=== PATIENT | female | born 1975 | race Hispanic/Latino ===

== ENCOUNTER 2024-04-20 10:01 | Inpatient (IN) | payer OTHER ==
[~2024-04-20] VITALS: Ht 152.4 cm; Wt 72.3 kg
--- NOTE | 2024-04-20 10:08 | ERN ---
ED Note History of Present Illness Stated Complaint: ABDOMINAL PAIN, HX OF HERNIA Chief Complaint: Abdominal Pain Time Seen by MD: 10:02 Dictation: PATIENT IS A 48-YEAR-OLD FEMALE COMING IN TODAY WITH MID ABDOMINAL PAIN WITH NAUSEA ONSET THIS MORNING. NO VOMITING NO DIARRHEA NO CHEST PAIN NO BACK PAIN. STATES SHE HAS A HISTORY OF A HERNIA THAT WAS DIAGNOSED IN 2018 HOWEVER SHE NEVER DID ANYTHING ABOUT IT. NO FEVER AT THIS TIME Allergies: Coded Allergies: No Known Drug Allergies (Unverified Allergy, Intermediate, 04/20/24) Past Medical History Past Medical History: Diabetes-Type II Surgical History: Other Surgical History Other: BRAIN ANEURYSM CLIP History: Not Applicable RN Note Reviewed/Agreed w/PFSH: Yes Review of System Dictation CONSTITUTIONAL: NEGATIVE EXCEPT FOR HPI HEAD/FACE: NEGATIVE EXCEPT FOR HPI EENT: NEGATIVE EXCEPT FOR HPI RESPIRATORY: NEGATIVE EXCEPT FOR HPI GASTROINTESTINAL/ABDOMINAL: NEGATIVE EXCEPT FOR HPI MID ABDOMINAL PAIN/NAUSEA GENITOURINARY: NEGATIVE EXCEPT FOR HPI MUSCULOSKELETAL: NEGATIVE EXCEPT FOR HPI INTEGUMENTARY: NEGATIVE EXCEPT FOR HPI NEUROLOGICAL/PSYCH: NEGATIVE EXCEPT FOR HPI HEMATOLOGIC/LYMPHATIC: NEGATIVE EXCEPT FOR HPI ALL SYSTEMS NEGATIVE, EXCEPT NOTED ABOVE. 13 POINT REVIEW OF SYSTEMS ASSESSED AND ALL NEGATIVE EXCEPT FOR ABOVE. Initial Vital Sign VS Vital Signs Date Time Temp Pulse Resp B/P (MAP) Pulse Ox O2 Delivery O2 Flow Rate FiO2 04/20/24 10:02 98.8 80 20 138/78 99 Room Air 0 04/20/24 14:12 21 Physical Exam Dictation VITAL SIGNS REVIEWED GENERAL APPEARANCE: ALERT, ORIENTED X 3, MODERATE ACUTE DISTRESS, WELL DEVELOPED, NOURISHED. HEAD AND FACE: NON-TRAUMATIC. EYES: PERRL, PINK CONJUNCTIVAS, EYELID NO TRAUMA, ANTERIOR CHAMBER WITH ARCUS SENILIS. EARS: PINNAS INTACT AND NO SIGNS OF TRAUMA OR ERYTHEMA EAR CANALS CLEAR AND NO DISCHARGE TM NO ERYTHEMA NOSE: NO DISCHARGE, NO BLEEDING. OROPHARYNX: MOUTH NORMAL, TONGUE PINK, PHARYNX CLEAR,NO ERYTHEMA, TONSILS NO EXUDATES, NO ABSCESSES NOTED, MUCOUS MEMBRANE MOIST NECK: SUPPLE, NON-TENDER, NO THYROMEGALY, NO MASSES, NO JVD, NO BRUITS BREAST:DEFERRED CHEST:NO TENDERNESS, NO CREPITUS, NO PARADOXICAL MOVEMENT, NO RETRACTIONS LUNGS:CLEAR, WELL-VENTILATED, SYMMETRIC, NO RALES, NO WHEEZING, NO RHONCHI, NO STRIDOR, GOOD BREATH SOUNDS BILATERALLY HEART: REGULAR RATE, REGULAR RHYTHM, NO MURMUR, NO GALLOPS VASCULAR: NO PERIPHERAL EDEMA, ABDOMEN: SOFT, POSITIVE BOWEL SOUNDS, NONDISTENDED, NO GUARDING, FOCAL ABDOMINAL PAIN SUPRAPUBIC UMBILICAL AREA., NO REBOUND, NO MASSES NO HEPATOMEGALY, NO SPLENOMEGALY, NO COURTNEY'S SIGN, NO HERNIAS. NO REDUCIBLE MASS RECTAL: DEFERRED GENITAL: DEFERRED NEUROLOGICAL: NORMAL SPEECH, MOTOR FUNCTION INTACT, SENSORY FUNCTION INTACT MUSCULOSKELETAL: NECK NONTENDER, FULL RANGE OF MOTION, BACK NONTENDER, FULL RANGE OF MOTION, EXTREMITIES: NONTENDER, FULL RANGE OF MOTION SKIN: COLOR PINK, DRY, NO TURGOR, NO RASH, NO LACERATIONS, NO ABRASIONS, NO CONTUSIONS. LYMPHATIC: DEFERRED Results (Laboratory/Radiology) Laboratory/Radiology Laboratory Tests Test 04/20/24 10:28 04/20/24 10:31 04/20/24 13:57 White Blood Count 9.5 K/uL (4.8-10.8) Red Blood Count 4.78 MIL/uL (4.00-5.50) Hemoglobin 14.2 g/dL (12.0-16.0) Hematocrit 43.1 % (36-48) Mean Corpuscular Volume 90.2 fL (79-99) Mean Corpuscular Hemoglobin 29.7 pg (27.0-33.0) Mean Corpuscular Hemoglobin Concent 32.9 g/dL (32.0-36.0) Red Cell Distribution Width 12.6 % (11.0-15.5) Platelet Count 310 K/uL (130-400) Mean Platelet Volume 10.2 fL (7.5-10.5) Immature Granulocyte % (Auto) 0.4 % (0-1) Neutrophils (%) (Auto) 85.7 % (40.0-77.0) H Lymphocytes (%) (Auto) 8.0 % (21.0-51.0) L Monocytes (%) (Auto) 5.0 % (3.0-13.0) Eosinophils (%) (Auto) 0.6 % (0.0-8.0) Basophils (%) (Auto) 0.3 % (0.0-5.0) Neutrophils # (Auto) 8.2 K/uL (1.8-7.7) H Lymphocytes # (Auto) 0.8 K/uL (1.0-4.8) L Monocytes # (Auto) 0.5 K/uL (0.1-1.0) Eosinophils # (Auto) 0.06 K/uL (0.00-0.70) Basophils # (Auto) 0.03 K/uL (0.00-0.20) Absolute Immature Granulocyte (auto 0.04 K/uL (0-1) Nucleated Red Blood Cells 0.0 % (0.0-0.19) White Cell Morphology Comment See comments Sodium Level 139 mmol/L (136-145) Potassium Level 4.0 mmol/L (3.5-5.1) Chloride Level 103 mmol/L (101-111) Carbon Dioxide Level 27 mmol/L (21-32) Blood Urea Nitrogen 15 mg/dL (7-18) Creatinine 0.7 mg/dL (0.5-1.0) Glomerular Filtration Rate Calc 105 mL/min (>90) Random Glucose 107 mg/dL (70-105) H Hemoglobin A1c 5.9 % (4.0-6.0) Estimated Average Glucose (eAG) 123 mg/dL (70-126) Total Calcium 9.5 mg/dL (8.5-10.1) Troponin I High Sensitivity < 4 ng/L (4-50) L Lipase 37 U/L (16-77) Urine Color YELLOW (YELLOW) Urine Appearance TURBID (CLEAR) Urine pH 8.0 (5.0-8.0) Urine Specific [place] 1.019 (1.001-1.031) Urine Protein 10 mg/dL (NEGATIVE) H Urine Glucose (UA) NEGATIVE mg/dL (NEGATIVE) Urine Ketones NEGATIVE mg/dL (NEGATIVE) Urine Occult Blood NEGATIVE (NEGATIVE) Urine Nitrate NEGATIVE (NEGATIVE) Urine Bilirubin NEGATIVE mg/dL (NEGATIVE) Urine Urobilinogen 0.2 mg/dL (0.2-1.0) Urine Leukocyte Esterase NEGATIVE Talisha/uL Urine RBC 0-1 /HPF (0-1) Urine WBC 2-5 /HPF (0-1) H Urine Squamous Epithelial Cells 2-5 /HPF (0-2) Urine Amorphous Sediment Moderate /LPF (None Seen) H Urine Bacteria Moderate /HPF (None Seen) H Prothrombin Time 10.5 SEC (9.6-11.6) Prothromb Time International Ratio 0.97 (0.85-1.15) Activated Partial Thromboplast Time 32.9 SEC (26.3-35.5) Lactic Acid Level 2.0 mmol/L (0.8-2.5) Magnesium Level 1.90 mg/dL (1.80-2.40) Total Bilirubin 0.5 mg/dL (0.2-1.0) Direct Bilirubin 0.1 mg/dL (0.0-0.3) Aspartate Amino Transf (AST/SGOT) 23 U/L (10-37) Alanine Aminotransferase (ALT/SGPT) 38 U/L (12-78) Alkaline Phosphatase 100 U/L (50-136) Total Protein 7.6 g/dL (6.0-8.3) Albumin 4.1 g/dL (3.5-5.0) Thyroid Stimulating Hormone (TSH) 0.57 uIU/mL (0.36-3.74) REASON: MID ABDOMINAL PAIN NAUSEA ONSET THIS MORNING. HISTORY OF A HERNIA ORDERING PHYSICIAN: GUCCI BENITEZ NP PROCEDURE: ABD PEL W - CT ABDOMEN/PELVIS W/CONTRAST CT ABDOMEN/PELVIS W/CONTRAST REASON: MID ABDOMINAL PAIN NAUSEA ONSET THIS MORNING. HISTORY OF A HERNIA COMPARISON: None. TECHNIQUE: Images are obtained from lung bases to the symphysis pubis following IV contrast, 75 cc Omnipaque 350. FINDINGS: Lung bases are clear. There are no focal liver lesions. There are normal-appearing kidneys.. Spleen and pancreas appear unremarkable. The gallbladder appears normal as well. There is a ventral hernia in the anterior abdominal midline. This contains a loop of small bowel. The loops of small bowel proximal to this are fluid-filled and mildly distended consistent with early mechanical obstruction, distal small bowel loops are normal caliber. There is no wall thickening to suggest strangulation at this time. Remaining bowel loops appear unremarkable. This includes normal appearance of the colon. The appendix was not separately identified, there is no secondary CT evidence of acute appendicitis. There is no evidence of free fluid or intraperitoneal air. There are no focal fluid collections. Aorta and retroperitoneum appear normal as do pelvic soft tissue structures. The anterior abdominal wall is intact. Osseous structures appear unremarkable. IMPRESSION: 1. Midline ventral hernia 5 cm above the umbilicus, this contains a loop of small bowel. 2. Proximal loops are mildly dilated and fluid-filled, distal loops normal caliber, consistent with early or partial mechanical obstruction, there is no current evidence of strangulation. 3. Otherwise unremarkable postcontrast CT abdomen and pelvis. CT was performed with one or more following dose reduction techniques: automated exposure control, adjustment of the mA and kv according to patient's size, or use of a iterative reconstruction technique. Labs Reviewed?: Yes EKG Comment: EKG NORMAL SINUS RHYTHM/HEART RATE 71/EARLY REPOLARIZATION IN LEADS V4 FIVE AND SIX. ED Course ED Course Orders Procedure Category Date Status Time Cbc With Differential LAB 04/20/24 Complete 10:06 Troponin I High LAB 04/20/24 Complete Sensitivity 10:06 Urinalysis Profile LAB 04/20/24 Complete 10:06 Ct Abdomen/Pelvis CT 04/20/24 Resulted W/Contrast 10:06 12 Lead Ekg Tracing- EKG 04/20/24 Resulted Technical 10:06 0.9%Nacl 1000ml (Ns PHA 04/20/24 Complete 1000ml) 10:30 Morphine 2mg Syg PHA 04/20/24 Complete (Morphine 2mg Syg) 10:30 Ondansetron 4mg Inj PHA 04/20/24 Complete (Zofran 4mg Inj) 10:30 Lipase LAB 04/20/24 Complete 10:06 Basic Metabolic Panel LAB 04/20/24 Complete 10:06 Culture Urine SUKH 04/20/24 In Process 11:16 Iohexol (Omnipaque) PHA 04/20/24 Complete 11:46 Ngt To Low CPOE 04/20/24 Transmitted Intermittent Suctn 12:51 Morphine 2mg Syg PHA 04/20/24 Complete (Morphine 2mg Syg) 13:00 Edm Admit Bridge Order ADM 04/20/24 Transmitted 13:01 General Surgery CONPHYSVC 04/20/24 Transmitted Consult 13:10 Admit Orders ADM 04/20/24 Transmitted 13:11 Pantoprazole 40mg Inj PHA 04/20/24 In Process (Protonix 40mg Inj 13:30 Acetaminophen PHA 04/20/24 Complete (Acetaminophen) 13:30 Ketorolac PHA 04/20/24 In Process Tromethamine 15mg/Ml 13:30 Morphine 2mg Syg PHA 04/20/24 In Process (Morphine 2mg Syg) 13:30 0.9%Nacl 1000ml (Ns PHA 04/20/24 In Process 1000ml) 13:30 Hemoglobin A1c LAB 04/20/24 Complete 13:17 Ribs Unilat 2v Lt RAD 04/20/24 Resulted 13:17 Chest 1vw RAD 04/20/24 Resulted 13:17 Aspiration Precautions CPOE 04/20/24 Transmitted 13:18 Elevate Hob At 30 CPOE 04/20/24 Transmitted Degrees 13:18 Ceftriaxone 1g Vial PHA 04/20/24 In Process (Rocephine 1g Inj) 13:30 Pt And Ptt LAB 04/20/24 Complete 13:18 Hepatic Function Panel LAB 04/20/24 Complete 13:19 Type And Screen BBK 04/20/24 Complete 13:19 Lactic Acid LAB 04/20/24 Complete 13:19 Magnesium LAB 04/20/24 Complete 13:19 Thyroid Stimulating LAB 04/20/24 Complete Hormone 13:19 Lidocaine (Lidoderm PHA 04/20/24 In Process Patch 5%) 17:00 Acetaminophen PHA 04/20/24 In Process (Acetaminophen) 17:00 Strict I&O CPOE 04/20/24 Transmitted 16:57 Daily Weights CPOE 04/20/24 Transmitted 16:57 *Nursing CPOE 04/20/24 Transmitted Communication: 16:57 Ondansetron 4mg Inj PHA 04/20/24 In Process (Zofran 4mg Inj) 17:30 Enoxaparin Sodium 40 PHA 04/20/24 In Process Mg/0.4 Ml (Lovenox) 21:00 Current Medications Medications (Trade) Dose Ordered Sig/Natalie Route PRN Reason Start Time Stop Time Status Last Admin Dose Admin Iohexol (Omnipaque) 75 ml STK-MED ONCE IV 04/20/24 11:46 04/20/24 11:47 DC Morphine Sulfate (morPHINE 2MG SYG) 2 mg ONCE ONCE IVP 04/20/24 10:30 04/20/24 10:31 DC 04/20/24 11:51 Morphine Sulfate (morPHINE 2MG SYG) 2 mg ONCE ONCE IVP 04/20/24 13:00 04/20/24 13:01 DC 04/20/24 13:16 Ondansetron HCl (zoFRAN 4MG INJ) 4 mg ONCE ONCE IVP 04/20/24 10:30 04/20/24 10:31 DC 04/20/24 11:31 Sodium Chloride 1,000 ml @ 0 mls/hr ONCE ONCE IV 04/20/24 10:30 04/20/24 10:31 DC 04/20/24 11:31 Vital Signs Date Time Temp Pulse Resp B/P (MAP) Pulse Ox O2 Delivery O2 Flow Rate FiO2 04/20/24 18:23 98.8 77 16 121/62 99 Room Air* 0 21 04/20/24 14:12 70 16 126/64 97 Room Air* 0 21 04/20/24 10:02 98.8 80 20 138/78 99 Room Air 0 TWELVE 48, SPOKE WITH , REVIEWED CT AND LABS WITH HIM AND HE AGREED TO ADMIT PATIENT HE IS AWARE I AM PAGING DR. MILLER FOR CONSULTATION. HEART Score Response (Comments) Value EKG: Repolarization changes 1 Age: 45-65yrs (+1) 1 Risk Factors: 1-2 risk factors (+1) 1 Initial Troponin: Normal limit (0) 0 Total 3 Medical Decision Making MDM MDM: DIFFERENTIAL DIAGNOSIS: APPENDICITIS/DIVERTICULITIS/INCARCERATED HERNIA/PANCREATITIS/UTI/ELECTROLYTE IMBALANCE/DEHYDRATION/BOWEL OBSTRUCTION RATIONALE: TESTS CONSIDERED AND ORDERED SECONDARY TO SHARED DECISION MAKING INCLUDE: LABS, ECG AND RADIOLOGY PREVIOUS OUTSIDE RECORDS REVIEWED: OLD ER VISITS. REVIEWED RISK OF COMPLICATION AND/OR MORBIDITY OR MORTALITY OF PATIENT MANAGEMENT: MILD MEDICATIONS-PER MEDICATION RECONCILIATION SEE NURSE'S NOTES NEED FOR HOSPITALIZATION: PATIENT DOES MEET CRITERIA FOR HOSPITALIZATION. YES, PATIENT WILL NEED SURGICAL CONSULTATION NG TUBE NEED FOR EMERGENCY MAJOR/MINOR SURGERY: NO THERE ARE NO SOCIAL CONCERNS WITH THIS PATIENT. PRESCRIPTION DRUG MANAGEMENT. PRESCRIPTIONS WILL INCLUDE SYMPTOMATIC CARE PATIENT'S PRIOR EXTERNAL MEDICAL RECORDS FROM OTHER ER VISITS WERE REVIEWED BY ME INDICATED. PRIOR TESTING AND RESULTS FROM PREVIOUS VISITS WERE REVIEWED. PRIOR TESTS WERE TAKEN INTO ACCOUNT WITH MEDICAL DECISION MAKING AND RESOURCE UTILIZATION, INDEPENDENT HISTORIAN/HISTORIANS WERE USED TO OBTAIN COMPLETE MEDICAL HISTORY. I INDEPENDENTLY INTERPRETED THE TEST THAT WERE PERFORMED, RESULTS WERE REVIEWED BY ME AND CONSIDERED FINDINGS ON RADIOLOGY IF ORDERED. MEDICAL MANAGEMENT AND EXAMINATION INTERPRETATION DISCUSSIONS WERE HAD BY ME WITH OTHER QUALIFIED HEALTHCARE PROFESSIONALS INDICATED FOR THE PATIENT'S CARE. DX & DISP Disposition: Inpatient Departure Impression: Primary Impression: Small bowel obstruction Additional Impressions: Intractable abdominal pain, Nausea Condition: Stable Time of Disposition: 13:00 I have reviewed the case, and I agree with, Diagnosis and Plan I performed a substantive portion of the visit. I have reviewed and personally made and approve the management plan that is documented in the notes by myself with CHAPITO/resident. I acknowledged full responsibility for the patient's management plan. GUCCI BENITEZ NP Apr 20, 2024 10:08 OSKAR JOHNSON DO Apr 20, 2024 18:29
--- NOTE | 2024-04-20 10:16 | EKG ---
[facility] Test Date: 2024-04-20 Test Time: 10:14:42 Pat Name: ELLE WALDROP Department: ED Room: Gender: F Research Technician: [id number] : 1975 Requested By: GUCCI BENITEZ Order Number: [id number] Reading MD: Meli Wheeler Measurements Intervals [place] Rate: 71 P: 13 MS: 144 QRS: 6 QRSD: 93 T: 62 QT: 411 QTc: 446 Interpretive Statements Sinus rhythm ST elev, probable normal early repol pattern No previous ECG available for comparison Electronically Signed On 04-20-2024 13:33:54 CAR COUPLER by Meli Wheeler Please click the below link to view image of tracing.
[2024-04-20 10:39] LABS: BASOPHILS # (AUTO) 0.03 K/uL (0.00-0.20); BASOPHILS % (AUTO) 0.3 % (0.0-5.0); EOSINOPHILS # (AUTO) 0.06 K/uL (0.00-0.70); EOSINOPHILS % (AUTO) 0.6 % (0.0-8.0); HEMATOCRIT 43.1 % (36-48); IMMATURE GRANULOCYTE ABSOLUTE 0.04 K/uL (0-1); LYMPHOCYTES # (AUTO) 0.8 K/uL (1.0-4.8); MEAN CORPUSCULAR HEMOGLOBIN 29.7 pg (27.0-33.0); MEAN CORPUSCULAR HGB CONC 32.9 g/dL (32.0-36.0); MEAN CORPUSCULAR VOLUME 90.2 fL (79-99); MONOCYTES # (AUTO) 0.5 K/uL (0.1-1.0); NEUTROPHILS # (AUTO) 8.2 K/uL (1.8-7.7); NEUTROPHILS % (AUTO) 85.7 % (40.0-77.0); PLATELET COUNT (AUTO) 310 K/uL (130-400); RED BLOOD CELL COUNT(AUTO) 4.78 MIL/uL (4.00-5.50); RED CELL DISTRIBUTION WIDTH 12.6 % (11.0-15.5); WHITE BLOOD COUNT (AUTO) 9.5 K/uL (4.8-10.8)
[2024-04-20 10:42] LABS: APPEARANCE,URINE TURBID (CLEAR); BILIRUBIN,URINE NEGATIVE (NEGATIVE); COLOR,URINE YELLOW (YELLOW); GLUCOSE, URINE (UA) NEGATIVE (NEGATIVE); KETONES,URINE NEGATIVE (NEGATIVE); LEUKOCYTE ESTERASE ,URINE NEGATIVE Leu/uL (NEGATIVE); NITRATE,URINE NEGATIVE (NEGATIVE); OCCULT BLOOD,URINE NEGATIVE (NEGATIVE); PROTEIN,URINE 10 mg/dL (NEGATIVE); UROBILINOGEN,URINE 0.2 mg/dL (0.2-1.0)
[2024-04-20 10:43] LABS: CREATININE 0.7 mg/dL (0.5-1.0)
[2024-04-20 10:46] LABS: ADD UA MICROSCOPIC YES
[2024-04-20 11:12] LABS: AMORPHOUS SEDIMENT,UR Moderate /LPF (None Seen); BACTERIA,URINE Moderate /HPF (None Seen)
[2024-04-20 11:13] LABS: RBC,URINE 0-1 /HPF (0-1)
[2024-04-20] MEDS: ondanSETRON 4MG INJ IVP ONE (11:31)
[2024-04-20] MEDS: 0.9%NACL 1000ML 1,000 ML IV ONE (11:31)
[2024-04-20] MEDS ORDERED: IOHEXOL-350 75 ML VIAL IV ONE (11:46)
[2024-04-20] MEDS: morPHINE 2 MG SYG IVP ONE ×2 (11:51→13:16)
--- NOTE | 2024-04-20 12:42 | HMCIMG ---
CT ABDOMEN/PELVIS W/CONTRAST REASON: MID ABDOMINAL PAIN NAUSEA ONSET THIS MORNING. HISTORY OF A HERNIA COMPARISON: None. TECHNIQUE: Images are obtained from lung bases to the symphysis pubis following IV contrast, 75 cc Omnipaque 350. FINDINGS: Lung bases are clear. There are no focal liver lesions. There are normal-appearing kidneys.. Spleen and pancreas appear unremarkable. The gallbladder appears normal as well. There is a ventral hernia in the anterior abdominal midline. This contains a loop of small bowel. The loops of small bowel proximal to this are fluid-filled and mildly distended consistent with early mechanical obstruction, distal small bowel loops are normal caliber. There is no wall thickening to suggest strangulation at this time. Remaining bowel loops appear unremarkable. This includes normal appearance of the colon. The appendix was not separately identified, there is no secondary CT evidence of acute appendicitis. There is no evidence of free fluid or intraperitoneal air. There are no focal fluid collections. Aorta and retroperitoneum appear normal as do pelvic soft tissue structures. The anterior abdominal wall is intact. Osseous structures appear unremarkable. IMPRESSION: 1. Midline ventral hernia 5 cm above the umbilicus, this contains a loop of small bowel. 2. Proximal loops are mildly dilated and fluid-filled, distal loops normal caliber, consistent with early or partial mechanical obstruction, there is no current evidence of strangulation. 3. Otherwise unremarkable postcontrast CT abdomen and pelvis. CT was performed with one or more following dose reduction techniques: automated exposure control, adjustment of the mA and kv according to patient's size, or use of a iterative reconstruction technique.
--- NOTE | 2024-04-20 13:00 | NUR ---
GENERAL SURGERY CONSULT DONE BY Janusz BENITEZ. WILL SEE PT
[2024-04-20] MEDS ORDERED: acetaMINOPHEN 1,000 MG/100 ML VIAL IVPB PRN ×2 (13:30→17:00)
[2024-04-20] MEDS ORDERED: ketOROlac 15MG/ML VIAL (15MG/ML) IV PRN (13:30)
[2024-04-20] MEDS: PANTOPrazole 40 MG/VIAL IVP SCH (13:42)
[2024-04-20] MEDS: cefTRIAXone 1G VIAL IVPB SCH (13:42)
[2024-04-20] MEDS: 0.9%NACL 1000ML 1,000 ML IV SCH (13:43)
[2024-04-20 14:24] LABS: INR 0.97 (0.85-1.15); PROTHROMBIN TIME 10.5 SEC (9.6-11.6)
[2024-04-20 14:25] LABS: PARTIAL THROMBOPLASTIN TIME 32.9 SEC (26.3-35.5)
[2024-04-20 14:43] LABS: ALBUMIN 4.1 g/dL (3.5-5.0); BILIRUBIN,DIRECT 0.1 mg/dL (0.0-0.3); BILIRUBIN,TOTAL 0.5 mg/dL (0.2-1.0); MAGNESIUM 1.9 mg/dL (1.80-2.40); THYROID STIMULATING HORMONE 0.57 uIU/mL (0.36-3.74); TOTAL PROTEIN, SERUM 7.6 g/dL (6.0-8.3)
--- NOTE | 2024-04-20 16:18 | HMCIMG ---
CHEST 1VW REASON: r/o any significant infiltrates, bowel obstruction COMPARISON: None. FINDINGS: Single view of the chest was obtained. Lungs are clear. Heart size is normal. There is no pulmonary vascular congestion. Mediastinum and bony thorax appear unremarkable. There is an NG tube in good position. IMPRESSION: 1. NG tube in good position, no acute finding.
--- NOTE | 2024-04-20 16:21 | HMCIMG ---
RIBS UNILAT 2V LT REASON: recent fall, landed on right ribs, pain TECHNIQUE: 4 views were obtained. FINDINGS: There is a nondisplaced fracture of the left posterolateral fifth rib. Ribs appear otherwise normal. Underlying lung appears clear. The soft tissues appear unremarkable. There is no evidence of a radiopaque foreign body. There is an NG tube passing into the stomach. IMPRESSION: 1. Nondisplaced fracture left posterolateral fifth rib.
[2024-04-20 16:46] LABS: HEMOGLOBIN A1C 5.9 % (4.0-6.0)
[2024-04-20] MEDS: LIDOCAINE 5% TOPICAL PATCH TP SCH (17:08)
[2024-04-20] MEDS: ondanSETRON 4MG INJ IVP PRN (17:13)
--- NOTE | 2024-04-20 17:36 | HP ---
[facility] HISTORY AND PHYSICAL Date of Service: Apr 20, 2024 Time of Service: 17:26 HISTORY OF PRESENT ILLNESS: [Date of service: 04/20/2024, was seen in ER room 11 48-year-old female with history of chronic abdominal ventral hernia diagnosed since 2017, prior history of brain aneurysm status post clipping in 2019 (hospitalized in [facility]), prediabetes, obesity, who presented to the ER with chief complaint of abdominal pain with associated nausea. Patient reports that she has a history of chronic ventral abdominal hernia and she gets intermittent pain usually from the hernia. Last night, she had tamales and she started developing progressive pain which has been severe in intensity. She was able to pass flatus today and her last bowel movement was yesterday ni ght. She has not followed up with a surgeon for management of the ventral hernia. She denies any fevers or chills and pain has improved from 10/10 in severity to 5/10 in severity after receiving IV morphine. She denies any redness, involving the ventral hernia site. On presentation to the hospital, patient was noted to be afebrile and hemodynamically stable. Labs including CBC and CMP was unremarkable. Patient underwent CT abdomen pelvis with IV contrast which showed findings of midline ventral hernia measuring 5 cm above the umbilicus with proximal dilated loops concerning for developing early or partial mechanical bowel obstruction. There was no evidence of strangulation noted on the CT scan. Patient also reports that she had a fall about a week ago and lift the left side of the chest. She had x-rays done and was getting physical therapy with no improvement of pain. We will obtain x-ray of the ribs to rule out any rib fracture. Patient will be admitted for further treatment and management. NG tube will be placed and patient will receive IV fluids and IV antibiotic therapy. Consultation with General surgery will be requested. ] REVIEW OF SYSTEMS CONSTITUTIONAL: Denies fevers, chills, or night sweats. No unintentional weight loss reported. NEUROLOGICAL: Denies headache, amaurosis fugax, motor weakness, sensory deficit, vertigo/spinning sensation, gait abnormalities, or tremors. ENT: No hearing loss, otalgia, otorrhea, rhinitis, rhinorrhea, hoarseness, or sore throat. CARDIOVASCULAR: Denies any exertional angina, dyspnea on exertion, orthopnea, paroxysmal nocturnal dyspnea, palpitations, life-threatening arrhythmias, claudication. PULMONARY: Denies any shortness of breath, cough, phlegm/sputum, hemoptysis, complaints of having left sided rib pain SLEEP: Denies morning headaches, daytime somnolence or napping. Denies difficulty falling asleep, staying asleep, waking from sleep. Denies knowledge of snoring. GASTROINTESTINAL: nausea, severe abdominal pain in the morning GENITOURINARY: Denies frequency, urgency, nocturia, hematuria or incontinence (Storage/Irritative symptoms.) Low urinary stream, straining to void, urinary intermittency or hesitancy, splitting of the voiding stream, terminal dribbling. ENDOCRINOLOGIC: Denies polyuria, polydipsia, polyphagia or heat/cold in tolerances. HEMATOLOGIC: Denies thrombophilia/previous clots, or coagulopathy/bleeding disorders. ONCOLOGIC: Denies personal history of malignancy. DERMATOLOGIC: Denies rashes or pruritus. PSYCHIATRIC: Denies any suicidal or homicidal ideation. Denies hallucinations. PAST MEDICAL HISTORY: [Obesity, prediabetes, history of ventral abdominal hernia diagnosed in 2018, history of brain aneurysm status post clipping in 2019 ] PAST SURGICAL HISTORY: [History of brain aneurysm status post clipping in 2020 and patient was hospitalized at [facility] in [place], [place] ] PAST SOCIAL HISTORY: [ Currently denies any active smoking or alcohol consumption ] FAMILY HISTORY: [ Denies pertinent family history ] Allergies: Patient denies any known drug allergies Medications: Patient reports being on medications including Victoza Coded Allergies: No Known Drug Allergies (Unverified Allergy, Intermediate, 04/20/24) PHYSICAL EXAM: GENERAL APPEARANCE: The patient is awake, alert, and oriented, in no acute cardiopulmonary distress. NEUROLOGICAL: Cranial nerves II-XII grossly intact. Motor is 5/5 in bilateral upper and lower extremities proximal to distal. No sensory deficits. HEENT: Face is symmetric. Pupils are equal and reactive. Extraocular movements are intact. NECK: Supple. No JVD. No thyromegaly. No submental, submandibular, pre- /postauricular, occipital or supraclavicular lymphadenopathy. CHEST: Normal chest expansion. No Telemetry. LUNGS: Absence of any rales, rhonchi or any wheezing. CARDIOVASCULAR: Regular. S1 and S2 normal. No appreciable rubs, murmurs or gallops. ABDOMEN: Soft, bowel sounds are active, palpable abdominal ventral hernia noted with no erythema or swelling noted, pain to palpation noted, no rebound or guarding : Deferred. No Arredondo. EXTREMITIES: Non-edematous and not cyanotic. No clubbing. Good capillary refill. SKIN: No skin breakdown. Vital Sign (Last 24 Hours) 04/20/24 04/20/24 10:02 14:12 Temp 98.8 Pulse 70 Resp 16 B/P (MAP) 126/64 Pulse Ox 97 O2 Delivery Room Air* O2 Flow Rate 0 FiO2 21 LABS: Laboratory: Test 04/20/24 13:57 04/20/24 10:31 04/20/24 10:28 Range/Units Prothrombin Time 10.5 9.6-11.6 SEC Prothromb Time International Ratio 0.97 0.85-1.15 Activated Partial Thromboplast Time 32.9 26.3-35.5 SEC Lactic Acid Level 2.0 0.8-2.5 mmol/L Magnesium Level 1.90 1.80-2.40 mg/dL Total Bilirubin 0.5 0.2-1.0 mg/dL Direct Bilirubin 0.1 0.0-0.3 mg/dL Aspartate Amino Transf (AST/SGOT) 23 10-37 U/L Alanine Aminotransferase (ALT/SGPT) 38 12-78 U/L Alkaline Phosphatase 100 50-136 U/L Total Protein 7.6 6.0-8.3 g/dL Albumin 4.1 3.5-5.0 g/dL Thyroid Stimulating Hormone (TSH) 0.57 0.36-3.74 uIU/mL Urine Color YELLOW YELLOW Urine Appearance TURBID CLEAR Urine pH 8.0 5.0-8.0 Urine Specific [place] 1.019 1.001-1.031 Urine Protein 10 H NEGATIVE mg/dL Urine Glucose (UA) NEGATIVE NEGATIVE mg/dL Urine Ketones NEGATIVE NEGATIVE mg/dL Urine Occult Blood NEGATIVE NEGATIVE Urine Nitrate NEGATIVE NEGATIVE Urine Bilirubin NEGATIVE NEGATIVE mg/dL Urine Urobilinogen 0.2 0.2-1.0 mg/dL Urine Leukocyte Esterase NEGATIVE NEGATIVE Talisha/uL Urine RBC 0-1 0-1 /HPF Urine WBC 2-5 H 0-1 /HPF Urine Squamous Epithelial Cells 2-5 0-2 /HPF Urine Amorphous Sediment Moderate H None Seen /LPF Urine Bacteria Moderate H None Seen /HPF White Blood Count 9.5 4.8-10.8 K/uL Red Blood Count 4.78 4.00-5.50 MIL/uL Hemoglobin 14.2 12.0-16.0 g/dL Hematocrit 43.1 36-48 % Mean Corpuscular Volume 90.2 79-99 fL Mean Corpuscular Hemoglobin 29.7 27.0-33.0 pg Mean Corpuscular Hemoglobin Concent 32.9 32.0-36.0 g/dL Red Cell Distribution Width 12.6 11.0-15.5 % Platelet Count 310 130-400 K/uL Mean Platelet Volume 10.2 7.5-10.5 fL Immature Granulocyte % (Auto) 0.4 0-1 % Neutrophils (%) (Auto) 85.7 H 40.0-77.0 % Lymphocytes (%) (Auto) 8.0 L 21.0-51.0 % Monocytes (%) (Auto) 5.0 3.0-13.0 % Eosinophils (%) (Auto) 0.6 0.0-8.0 % Basophils (%) (Auto) 0.3 0.0-5.0 % Neutrophils # (Auto) 8.2 H 1.8-7.7 K/uL Lymphocytes # (Auto) 0.8 L 1.0-4.8 K/uL Monocytes # (Auto) 0.5 0.1-1.0 K/uL Eosinophils # (Auto) 0.06 0.00-0.70 K/uL Basophils # (Auto) 0.03 0.00-0.20 K/uL Absolute Immature Granulocyte (auto 0.04 0-1 K/uL Nucleated Red Blood Cells 0.0 0.0-0.19 % White Cell Morphology Comment See comments Sodium Level 139 136-145 mmol/L Potassium Level 4.0 3.5-5.1 mmol/L Chloride Level 103 101-111 mmol/L Carbon Dioxide Level 27 21-32 mmol/L Blood Urea Nitrogen 15 7-18 mg/dL Creatinine 0.7 0.5-1.0 mg/dL Glomerular Filtration Rate Calc 105 >90 mL/min Random Glucose 107 H 70-105 mg/dL Hemoglobin A1c 5.9 4.0-6.0 % Estimated Average Glucose (eAG) 123 70-126 mg/dL Total Calcium 9.5 8.5-10.1 mg/dL Troponin I High Sensitivity < 4 L 4-50 ng/L Lipase 37 16-77 U/L Current Medications Medications (Trade) Dose Ordered Sig/Natalie Route PRN Reason Start Time Stop Time Status Last Admin Dose Admin Acetaminophen (acetaMINOPHEN) 1,000 mg Q12H PRN IVPB PAIN LEVEL 1 TO 3 04/20/24 17:00 05/20/24 13:29 Acetaminophen (acetaMINOPHEN) 1,000 mg Q6H6 PRN IVPB PAIN LEVEL 1 TO 3 04/20/24 13:30 04/20/24 16:59 DC Ceftriaxone Sodium (ROCEphine 1G INJ) 1 gm Q12H IVPB 04/20/24 13:30 04/30/24 13:29 04/20/24 13:42 1 GM Ketorolac Tromethamine (toRADol) 15 mg Q8H PRN IV MODERATE PAIN (4-6) 04/20/24 13:30 04/25/24 13:29 Lidocaine (Lidoderm Patch 5%) 1 patch ONCE TP 04/20/24 17:00 04/20/24 23:59 04/20/24 17:08 1 PATCH Morphine Sulfate (morPHINE 2MG SYG) 2 mg Q6H PRN IVP SEVERE PAIN (7-10) 04/20/24 13:30 04/27/24 13:29 Ondansetron HCl (zoFRAN 4MG INJ) 4 mg Q6H PRN IVP NAUSEA/VOMITING 04/20/24 17:30 05/20/24 17:29 04/20/24 17:13 4 MG Pantoprazole Sodium (PROTonix 40MG INJ) 40 mg Q24H IVP 04/20/24 13:30 05/20/24 13:29 04/20/24 13:42 40 MG Sodium Chloride 1,000 ml @ 100 mls/hr Q10H IV 04/20/24 13:30 05/20/24 13:29 04/20/24 13:43 100 MLS/HR DIAGNOSTICS / RADIOLOGY: SERVICE 1006 REASON: MID ABDOMINAL PAIN NAUSEA ONSET THIS MORNING. HISTORY OF A HERNIA ORDERING PHYSICIAN: GUCCI BENITEZ NP PROCEDURE: ABD PEL W - CT ABDOMEN/PELVIS W/CONTRAST CT ABDOMEN/PELVIS W/CONTRAST REASON: MID ABDOMINAL PAIN NAUSEA ONSET THIS MORNING. HISTORY OF A HERNIA COMPARISON: None. TECHNIQUE: Images are obtained from lung bases to the symphysis pubis following IV contrast, 75 cc Omnipaque [id number]. FINDINGS: Lung bases are clear. There are no focal liver lesions. There are normal-appearing kidneys.. Spleen and pancreas appear unremarkable. The gallbladder appears normal as well. There is a ventral hernia in the anterior abdominal midline. This contains a loop of small bowel. The loops of small bowel proximal to this are fluid-filled and mildly distended consistent with early mechanical obstruction, distal small bowel loops are normal caliber. There is no wall thickening to suggest strangulation at this time. Remaining bowel loops appear unremarkable. This includes normal appearance of the colon. The appendix was not separately identified, there is no secondary CT evidence of acute appendicitis. There is no evidence of free fluid or intraperitoneal air. There are no focal fluid collections. Aorta and retroperitoneum appear normal as do pelvic soft tissue structures. The anterior abdominal wall is intact. Osseous structures appear unremarkable. IMPRESSION: 1. Midline ventral hernia 5 cm above the umbilicus, this contains a loop of small bowel. 2. Proximal loops are mildly dilated and fluid-filled, distal loops normal caliber, consistent with early or partial mechanical obstruction, there is no current evidence of strangulation. 3. Otherwise unremarkable postcontrast CT abdomen and pelvis. CT was performed with one or more following dose reduction techniques: automated exposure control, adjustment of the mA and kv according to patient's size, or use of a iterative reconstruction technique. DICTATED BY: CHINA SEBASTIAN MD DATE: 04/20/24 1237 ELECTRONICALLY SIGNED BY: CHINA SEBASTIAN MD DATE: 04/20/24 1242 ASSESSMENT: Developing acute mechanical bowel obstruction, POA Ventral abdominal wall hernia, POA Recent history of fall with nondisplaced 5th left rib fracture, POA Obesity, POA History of brain aneurysm status post aneurysmal clipping in 2019, POA History of prediabetes, POA Developing urinary tract infection, POA PLAN: Patient presenting with chief complaint of nausea with severe abdominal pain with underlying history of ventral abdominal hernia with CT findings of developing mechanical small-bowel obstruction Patient will be kept strictly NPO NG tube will be placed for decompression IV fluid hydration with NS at 100 mL/hour Pain control with IV Tylenol for mild pain, Toradol for moderate pain and morphine for severe pain Anti-reflux treatment with Protonix IV 40 mg daily With regards to findings of nondisplaced 5th rib fracture, patient will receive Lidoderm patch Consultation with General surgery will be requested for further evaluation and management of bowel obstruction, monitor closely for signs of peritonitis, ischemic bowel, close loop obstruction, etc. with General surgery has already been notified from the ER Abdominal x-ray will be repeated in the morning DVT prophylaxis with Lovenox, GI prophylaxis with Protonix Anticipate inpatient hospitalization for at least 48-72 hours Date of service: 04/20/2024 Plan of care was discussed with patient and family at bedside, Mannie Shields MD Advanced Care Planning: Which of the following were discussed: Hospice care: Yes __ No _X_ Therapeutic options: Yes _X_ No __ Advance directives: Yes _X_ No __ Other discussions: Discussed with who?: Patient Voluntary nature of this service was explained to the patient? Yes _x_ No __ Amount of time spent: 20 minutes MANNIE SHIELDS MD Apr 20, 2024 17:36
--- NOTE | 2024-04-20 19:47 | NUR ---
1ST ATTEMPT TO CALL REPORT NOW. NURSE IS BUSY WILL CALL BACK
[2024-04-20 20:55] VITALS: BP 159/79; PULSE 71; RESP 18; TEMP 98.2
[2024-04-20 21:30] VITALS: O2SAT 95
[2024-04-20] MEDS: ENOXAPARIN SODIUM 40 MG/0.4 ML SYRINGE SQ SCH (21:45)
[2024-04-20] MEDS: morPHINE 2 MG SYG IVP PRN (23:21)
[2024-04-21] VITALS (7 sets, daily range): BP systolic 120–160; BP diastolic 63–82; PULSE 70–81; RESP 17–18; TEMP 97.6–98.6; O2SAT 98–99
--- NOTE | 2024-04-21 06:32 | NUR ---
RN WILL ATTEMPT TO FIND A PRODUCT ASSEMBLER TO BRING PT DOWN FOR ABD XRAYS.
[2024-04-21 07:36] LABS: BASOPHILS # (AUTO) 0.03 K/uL (0.00-0.20); BASOPHILS % (AUTO) 0.4 % (0.0-5.0); EOSINOPHILS # (AUTO) 0.18 K/uL (0.00-0.70); EOSINOPHILS % (AUTO) 2.7 % (0.0-8.0); HEMATOCRIT 44.7 % (36-48); IMMATURE GRANULOCYTE ABSOLUTE 0.02 K/uL (0-1); LYMPHOCYTES # (AUTO) 1.4 K/uL (1.0-4.8); MEAN CORPUSCULAR HEMOGLOBIN 29.6 pg (27.0-33.0); MEAN CORPUSCULAR HGB CONC 31.8 g/dL (32.0-36.0); MEAN CORPUSCULAR VOLUME 93.1 fL (79-99); MONOCYTES # (AUTO) 0.6 K/uL (0.1-1.0); MONOCYTES % (AUTO) 8.3 % (3.0-13.0); NEUTROPHILS # (AUTO) 4.6 K/uL (1.8-7.7); NEUTROPHILS % (AUTO) 67.3 % (40.0-77.0); PLATELET COUNT (AUTO) 295 K/uL (130-400); WHITE BLOOD COUNT (AUTO) 6.8 K/uL (4.8-10.8)
[2024-04-21 09:22] LABS: CREATININE 0.7 mg/dL (0.5-1.0)
[2024-04-21 09:26] LABS: ALBUMIN 3.9 g/dL (3.5-5.0); BILIRUBIN,TOTAL 0.2 mg/dL (0.2-1.0); TOTAL PROTEIN, SERUM 7.9 g/dL (6.0-8.3)
--- NOTE | 2024-04-21 11:51 | CONS ---
CONSULT NOTE: Consulting physician:Dr Shields Consulting service: General surgery Reason for consultation: Ventral hernia with small bowel obstruction History of present illness: This is a 48-year-old female with a medical history listed below that has been consulted to surgery after presenting to hospital with concerns of abdominal pain that began several days prior. Patient with known history a ventral hernia for the last five years. Patient reports no significant issues in the past. Patient reports that when she noted discomfort tissue with reduce hernia in her room but due to significant increase in discomfort yesterday in inability to reduce she presented to the hospital for further evaluation. Initial imaging concerning for ventral hernia with bowel content and source of obstruction. Since admission patient was able to reduce hernia. Patient is passing gas. NG tube minimal. Abdominal pain reported time of exam Medical history: Obesity, prediabetes, history of ventral abdominal hernia diagnosed in 2018, history of brain aneurysm status post clipping in 2019 PAST SURGICAL HISTORY: History of brain aneurysm status post clipping in 2019 and patient was hospitalized at [facility] in [place], [place] PAST SOCIAL HISTORY: Currently denies any active smoking or alcohol consumption FAMILY HISTORY: Denies pertinent family history Allergies: Patient denies any known drug allergies Medications: Patient reports being on medications including Victoza Coded Allergies: No Known Drug Allergies (Unverified Allergy, Intermediate, 04/20/24) Review of systems: General: No Fever, No Chills, No Night Sweats, No Fatigue, No Malaise, No Appetite, No Other HEENT: No Head Aches, No Visual Changes, No Eye Pain, No Ear Pain, No Dysphasia, No Sinus Congestion, No Post Nasal Drip, No Sore Throat, No Other Pulmonary: No Dyspnea, No Cough, No Pleuritic Chest Pain, No Other Cardiovascular: No: Chest Pain, Palpitations, Orthopnea, Paroxysmal No Dyspnea, Edema, Lt Headedness, Other Gastrointestinal: No: Nausea, Vomiting, Diarrhea, Constipation, Melena, Hematochezia, Other Genitourinary: No Dysuria, No Frequency, No Incontinence, No Hematuria, No Retention, No Other Musculoskeletal: No: other, neck pain, shoulder pain, arm pain, back pain, hand pain, leg pain, foot pain Skin: No Urticaria, No Rash, No Other Neurological: No: Weakness, Numbness, Incoordination, Change in speech, Confusion, Seizures, Other Physical exam: General: Awake alert and oriented Heart: Regular rate and rhythm} Lungs: Clear to auscultation no distress Abdomen: [Soft, nontender, nondistended Assessment: This is a 48-year-old female with concerns of ventral hernia resolving small bowel obstruction Plan: At this point in time we will continue with conservative bandage. Patient to remain NPO We will reorder KUB to evaluate improvement of obstruction NG tube to remain in place If imaging unremarkable NG tube to be removed and patient to be started on clear liquid diet No immediate surgical intervention at this time Dr. Monge to be updated in patient's status PEGGY RIVAS Jr. Apr 21, 2024 11:51
--- NOTE | 2024-04-21 12:47 | PN ---
[facility] PROGRESS NOTE Date of Service: Apr 21, 2024 Time of Service: 12:[address] Argueta SUBJECTIVE: [ 04/20 48-year-old female with history of chronic abdominal ventral hernia diagnosed since 2017, prior history of brain aneurysm status post clipping in 2019 (hospitalized in [facility]), prediabetes, obesity, who presented to the ER with chief complaint of abdominal pain with associated nausea. Patient reports that she has a history of chronic ventral abdominal hernia and she gets intermittent pain usually from the hernia. Last night, she had tamales and she started developing progressive pain which has been severe in intensity. She was able to pass flatus today and her last bowel movement was yesterday night. She has not followed up with a surgeon for management of the ventral hernia. She denies any fevers or chills and pain has improved from 10 /10 in severity to 5/10 in severity after receiving IV morphine. She denies any redness, involving the ventral hernia site. On presentation to the hospital, patient was noted to be afebrile and hemodynamically stable. Labs including CBC and CMP was unremarkable. Patient underwent CT abdomen pelvis with IV contrast which showed findings of midline ventral hernia measuring 5 cm above the umbilicus with proximal dilated loops concerning for developing early or partial mechanical bowel obstruction. There was no evidence of strangulation noted on the CT scan. 04/21 patient was seen by nurse practitioner and physician during rounding in room 301 lying in the bed. Patient was evaluated by the surgeon and at this moment they were not proceed with any surgery. They would like to repeat KUB if KUB unremarkable to discontinue NG tube in place patient on a clear liquid diet. We are waiting for results of KUB at this moment. NG tube output 400 cc since placement. We will continue to monitor patient in the meantime. A.m. labs.] REVIEW OF SYSTEMS CONSTITUTIONAL: Denies fevers, chills, or night sweats. No unintentional weight loss reported. NEUROLOGICAL: Denies headache, amaurosis fugax, motor weakness, sensory deficit, vertigo/spinning sensation, gait abnormalities, or tremors. ENT: No hearing loss, otalgia, otorrhea, rhinitis, rhinorrhea, hoarseness, or sore throat. CARDIOVASCULAR: Denies any exertional angina, dyspnea on exertion, orthopnea, paroxysmal nocturnal dyspnea, palpitations, life-threatening arrhythmias, claudication. PULMONARY: Denies any shortness of breath, cough, phlegm/sputum, hemoptysis, complaints of having left sided rib pain SLEEP: Denies morning headaches, daytime somnolence or napping. Denies difficulty falling asleep, staying asleep, waking from sleep. Denies knowledge of snoring. GASTROINTESTINAL: nausea, severe abdominal pain in the morning GENITOURINARY: Denies frequency, urgency, nocturia, hematuria or incontinence (Storage/Irritative symptoms.) Low urinary stream, straining to void, urinary intermittency or hesitancy, splitting of the voiding stream, terminal dribbling. ENDOCRINOLOGIC: Denies polyuria, polydipsia, polyphagia or heat/cold intolerances. HEMATOLOGIC: Denies thrombophilia/previous clots, or coagulopathy/bleeding disorders. ONCOLOGIC: Denies personal history of malignancy. DERMATOLOGIC: Denies rashes or pruritus. PSYCHIATRIC: Denies any suicidal or homicidal ideation. Denies hallucinations. PHYSICAL EXAM: GENERAL APPEARANCE: The patient is awake, alert, and oriented, in no acute cardiopulmonary distress. NEUROLOGICAL: Cranial nerves II-XII grossly intact. Motor is 5/5 in bilateral upper and lower extremities proximal to distal. No sensory deficits. HEENT: Face is symmetric. Pupils are equal and reactive. Extraocular movements are intact. NECK: Supple. No JVD. No thyromegaly. No submental, submandibular, pre- /postauricular, occipital or supraclavicular lymphadenopathy. CHEST: Normal chest expansion. No Telemetry. LUNGS: Absence of any rales, rhonchi or any wheezing. CARDIOVASCULAR: Regular. S1 and S2 normal. No appreciable rubs, murmurs or gallops. ABDOMEN: Soft, bowel sounds are active, palpable abdominal ventral hernia noted with no erythema or swelling noted, pain to palpation noted, no rebound or guarding : Deferred. No Arredondo. EXTREMITIES: Non-edematous and not cyanotic. No clubbing. Good capillary refill. SKIN: No skin breakdown. Vital Signs (last 8hr) Date Time Temp Pulse Resp B/P (MAP) Pulse Ox O2 Delivery O2 Flow Rate FiO2 04/21/24 11:29 98.6 81 18 138/78 95 Room Air 04/21/24 08:01 98.4 77 18 143/71 98 Room Air LABS: Laboratory: Test 04/21/24 07:20 04/20/24 13:57 04/20/24 10:31 04/20/24 10:28 Range/Units White Blood Count 6.8 # 4.8-10.8 K/uL Red Blood Count 4.80 4.00-5.50 MIL/uL Hemoglobin 14.2 12.0-16.0 g/dL Hematocrit 44.7 36-48 % Mean Corpuscular Volume 93.1 79-99 fL Mean Corpuscular Hemoglobin 29.6 27.0-33.0 pg Mean Corpuscular Hemoglobin Concent 31.8 L 32.0-36.0 g/dL Red Cell Distribution Width 13.0 11.0-15.5 % Platelet Count 295 130-400 K/uL Mean Platelet Volume 10.2 7.5-10.5 fL Immature Granulocyte % (Auto) 0.3 0-1 % Neutrophils (%) (Auto) 67.3 40.0-77.0 % Lymphocytes (%) (Auto) 21.0 21.0-51.0 % Monocytes (%) (Auto) 8.3 3.0-13.0 % Eosinophils (%) (Auto) 2.7 0.0-8.0 % Basophils (%) (Auto) 0.4 0.0-5.0 % Neutrophils # (Auto) 4.6 1.8-7.7 K/uL Lymphocytes # (Auto) 1.4 1.0-4.8 K/uL Monocytes # (Auto) 0.6 0.1-1.0 K/uL Eosinophils # (Auto) 0.18 0.00-0.70 K/uL Basophils # (Auto) 0.03 0.00-0.20 K/uL Absolute Immature Granulocyte (auto 0.02 0-1 K/uL Nucleated Red Blood Cells 0.0 0.0-0.19 % Sodium Level 146 H 136-145 mmol/L Potassium Level 4.0 3.5-5.1 mmol/L Chloride Level 105 101-111 mmol/L Carbon Dioxide Level 29 21-32 mmol/L Blood Urea Nitrogen 11 7-18 mg/dL Creatinine 0.7 0.5-1.0 mg/dL Glomerular Filtration Rate Calc 105 >90 mL/min Random Glucose 87 70-105 mg/dL Lactic Acid Level 1.2 0.8-2.5 mmol/L Total Calcium 9.4 8.5-10.1 mg/dL Magnesium Level 2.00 1.80-2.40 mg/dL Total Bilirubin 0.2 # 0.2-1.0 mg/dL Aspartate Amino Transf (AST/SGOT) 28 10-37 U/L Alanine Aminotransferase (ALT/SGPT) 42 12-78 U/L Alkaline Phosphatase 101 50-136 U/L C-Reactive Protein, Quantitative 10.40 H 0.5-3.0 mg/L Total Protein 7.9 6.0-8.3 g/dL Albumin 3.9 3.5-5.0 g/dL Prothrombin Time 10.5 9.6-11.6 SEC Prothromb Time International Ratio 0.97 0.85-1.15 Activated Partial Thromboplast Time 32.9 26.3-35.5 SEC Direct Bilirubin 0.1 0.0-0.3 mg/dL Thyroid Stimulating Hormone (TSH) 0.57 0.36-3.74 uIU/mL Urine Color YELLOW YELLOW Urine Appearance TURBID CLEAR Urine pH 8.0 5.0-8.0 Urine Specific Romeo 1.019 1.001-1.031 Urine Protein 10 H NEGATIVE mg/dL Urine Glucose (UA) NEGATIVE NEGATIVE mg/dL Urine Ketones NEGATIVE NEGATIVE mg/dL Urine Occult Blood NEGATIVE NEGATIVE Urine Nitrate NEGATIVE NEGATIVE Urine Bilirubin NEGATIVE NEGATIVE mg/dL Urine Urobilinogen 0.2 0.2-1.0 mg/dL Urine Leukocyte Esterase NEGATIVE NEGATIVE Talisha/uL Urine RBC 0-1 0-1 /HPF Urine WBC 2-5 H 0-1 /HPF Urine Squamous Epithelial Cells 2-5 0-2 /HPF Urine Amorphous Sediment Moderate H None Seen /LPF Urine Bacteria Moderate H None Seen /HPF White Cell Morphology Comment See comments Hemoglobin A1c 5.9 4.0-6.0 % Estimated Average Glucose (eAG) 123 70-126 mg/dL Troponin I High Sensitivity < 4 L 4-50 ng/L Lipase 37 16-77 U/L Current Medications Medications (Trade) Dose Ordered Sig/Natalie Route PRN Reason Start Time Stop Time Status Last Admin Dose Admin Acetaminophen (acetaMINOPHEN) 1,000 mg Q12H PRN IVPB PAIN LEVEL 1 TO 3 04/20/24 17:00 05/20/24 13:29 Acetaminophen (acetaMINOPHEN) 1,000 mg Q6H6 PRN IVPB PAIN LEVEL 1 TO 3 04/20/24 13:30 04/20/24 16:59 DC Ceftriaxone Sodium (ROCEphine 1G INJ) 1 gm Q12H IVPB 04/20/24 13:30 04/30/24 13:29 04/21/24 02:05 1 GM Enoxaparin Sodium (Lovenox) 40 mg HS SQ 04/20/24 21:00 05/20/24 20:59 04/20/24 21:45 40 MG Ketorolac Tromethamine (toRADol) 15 mg Q8H PRN IV MODERATE PAIN (4-6) 04/20/24 13:30 04/25/24 13:29 Lidocaine (Lidoderm Patch 5%) 1 patch ONCE TP 04/20/24 17:00 04/20/24 23:59 DC 04/20/24 17:08 1 PATCH Morphine Sulfate (morPHINE 2MG SYG) 2 mg Q6H PRN IVP SEVERE PAIN (7-10) 04/20/24 13:30 04/27/24 13:29 04/20/24 23:21 2 MG Ondansetron HCl (zoFRAN 4MG INJ) 4 mg Q6H PRN IVP NAUSEA/VOMITING 04/20/24 17:30 05/20/24 17:29 04/21/24 09:16 4 MG Pantoprazole Sodium (PROTonix 40MG INJ) 40 mg Q24H IVP 04/20/24 13:30 05/20/24 13:29 04/20/24 13:42 40 MG Sodium Chloride 1,000 ml @ 100 mls/hr Q10H IV 04/20/24 13:30 04/21/24 12:42 DC 04/21/24 09:17 100 MLS/HR DIAGNOSTICS / RADIOLOGY: [ ] ASSESSMENT: Developing acute mechanical bowel obstruction, POA Ventral abdominal wall hernia, POA Recent history of fall with nondisplaced 5th left rib fracture, POA Obesity, POA History of brain aneurysm status post aneurysmal clipping in 2019, POA History of prediabetes, POA Developing urinary tract infection, POA PLAN: Patient presenting with chief complaint of nausea with severe abdominal pain with underlying history of ventral abdominal hernia with CT findings of developing mechanical small-bowel obstruction Patient will be kept strictly NPO NG tube will be placed for decompression IV fluid hydration with NS at 100 mL/hour Pain control with IV Tylenol for mild pain, Toradol for moderate pain and morphine for severe pain Anti-reflux treatment with Protonix IV 40 mg daily With regards to findings of nondisplaced 5th rib fracture, patient will receive Lidoderm patch Consultation with General surgery will be requested for further evaluation and management of bowel obstruction, monitor closely for signs of peritonitis, ischemic bowel, close loop obstruction, etc. with General surgery has already been notified from the ER KUB DVT prophylaxis with Lovenox, GI prophylaxis with Protonix ATTESTATION BY PHYSICIAN I have seen and examined the patient. I reviewed the documentation, medical decision making, and treatment plan as noted by the mid-level provider above. I agree with the findings and plan of care. MD MAT Argueta [facility] Apr 21, 2024 12:47
--- NOTE | 2024-04-21 13:18 | HMCIMG ---
Exam Type: ABD 1VW Clinical Information: BOWEL OBS Comparison: None Findings: Nasogastric tube is noted with tip in place in stomach. Abdomen demonstrates no evidence of pathologic calcification or soft tissue mass. There are no radiopacities to suggest calculous disease. The intestinal gas pattern is within normal limits without evidence of dilatation to suggest obstruction or adynamic ileus. The bony structures are unremarkable. IMPRESSION: Nasogastric tube is noted with tip in place in stomach. Otherwise normal abdomen.
--- NOTE | 2024-04-21 13:56 | NUR ---
INITIAL ASSESSMENT Patient lives with spouse, Aidan Swan. She has no home services. DME: [employer]PM, glucometer (no insulin). Patient is able to complete ADLs independently and drives. She is employed part time flexible clerk. PCP is Dr. Constantino Moses. Pharmacy is [facility] in [place]. Patient has no issues with having stable group home to live in or transportation. She and spouse have lived in their home for some time. No concerns voiced regarding not having enough food in the home. No safety concerns voiced regarding returning home. DCP is home. Addendum: 04/21/24 at 1358 by LM MONZON Amended: Links added.
[2024-04-21] MEDS: DEXTROSE 5 %-0.45 % NACL 1,000 ML IV SCH (14:30)
--- NOTE | 2024-04-21 16:50 | NUR ---
NG TUBE REMOVED. PT TOLERATED REMOVAL. DENIES PAIN OR NAUSEA
[2024-04-22] VITALS: BP 135/84; PULSE 65; RESP 18; TEMP 98.6
[2024-04-22 04:00] VITALS: BP 130/80; PULSE 61; RESP 16; TEMP 98.2
[2024-04-22 05:13] LABS: BASOPHILS # (AUTO) 0.02 K/uL (0.00-0.20); BASOPHILS % (AUTO) 0.4 % (0.0-5.0); EOSINOPHILS # (AUTO) 0.24 K/uL (0.00-0.70); EOSINOPHILS % (AUTO) 4.9 % (0.0-8.0); HEMATOCRIT 38.4 % (36-48); IMMATURE GRANULOCYTE ABSOLUTE 0.01 K/uL (0-1); LYMPHOCYTES # (AUTO) 1.6 K/uL (1.0-4.8); LYMPHOCYTES % (AUTO) 32.9 % (21.0-51.0); MEAN CORPUSCULAR HEMOGLOBIN 29.6 pg (27.0-33.0); MEAN CORPUSCULAR HGB CONC 32.8 g/dL (32.0-36.0); MEAN CORPUSCULAR VOLUME 90.4 fL (79-99); MONOCYTES # (AUTO) 0.5 K/uL (0.1-1.0); MONOCYTES % (AUTO) 10.7 % (3.0-13.0); NEUTROPHILS # (AUTO) 2.5 K/uL (1.8-7.7); NEUTROPHILS % (AUTO) 50.9 % (40.0-77.0); PLATELET COUNT (AUTO) 270 K/uL (130-400); RED BLOOD CELL COUNT(AUTO) 4.25 MIL/uL (4.00-5.50); RED CELL DISTRIBUTION WIDTH 12.7 % (11.0-15.5); WHITE BLOOD COUNT (AUTO) 4.9 K/uL (4.8-10.8)
[2024-04-22 05:27] LABS: ALBUMIN 3.2 g/dL (3.5-5.0); BILIRUBIN,TOTAL 0.2 mg/dL (0.2-1.0); CREATININE 0.7 mg/dL (0.5-1.0); POTASSIUM 3.3 mmol/L (3.5-5.1); TOTAL PROTEIN, SERUM 6.9 g/dL (6.0-8.3)
[2024-04-22 07:55] VITALS: BP 121/78; PULSE 75; RESP 16; TEMP 98
[2024-04-22] MEDS ORDERED: MAGNESIUM 2GM PREMIX 50ML 50 ML IV PRN (08:30)
[2024-04-22] MEDS ORDERED: PoTASSium chloRIDE 20MEQ ER 20 MEQ ERTAB PO PRN (08:30)
[2024-04-22] MEDS ORDERED: PoTASSium chloRIDE 20MEQ/100ML 100 ML IV PRN (08:30)
[2024-04-22] MEDS ORDERED: PoTASSium chl 10% ELIXIR 20MEQ 20 MEQ/15 ML UDCUP PO PRN (08:30)
[2024-04-22 08:34] VITALS: O2SAT 99
[2024-04-22] MEDS: PoTASSium chloRIDE 20MEQ ER 20 MEQ ERTAB PO ONE (08:34)
[2024-04-22] MEDS ORDERED: AMOX1TAB16 PO (11:40)
[2024-04-22 11:45] VITALS: BP 122/66; PULSE 78; RESP 18; TEMP 97.9
--- NOTE | 2024-04-22 11:46 | DS ---
Discharge Summary Hospital Course Summary: DATE OF ADMISSION:[04/20/2024] DATE OF DISCHARGE:[04/22/2024] DISPOSITION:[Home] CONDITION:[Medically stable] CONSULTANTS:[] FOLLOW UP APPOINTMENTS:[PCP 2 to 3 days. Surgeon within 2 to 3 weeks] PROCEDURES:[None] IMAGING: report attached to summary MICROBIOLOGY: report attached to summary ACTIVITY:[Independent] HOME MEDICATIONS: see med recc NEW MEDICATIONS:[See med rec] EMERGENCY INSTRUCTIONS: The patient was instructed to present to the nearest Emergency departmentr or call 911 once their symptoms will return or worsen Technical Specialist Cytology(s): 48-year-old female with history of chronic abdominal ventral hernia diagnosed since 2018, prior history of brain aneurysm status post clipping in 2019 (hospitalized in [facility]), prediabetes, obesity, who presented to the ER with chief complaint of abdominal pain with associated nausea. Patient reports that she has a history of chronic ventral abdominal hernia and she gets intermittent pain usually from the hernia. Last night, she had tamales and she started developing progressive pain which has been severe in intensity. She was able to pass flatus today and her last bowel movement was yesterday night. She has not followed up with a surgeon for management of the ventral hernia. She denies any fevers or chills and pain has improved from 10/10 in severity to 5/10 in severity after receiving IV morphine. She denies any redness, involving the ventral hernia site. On presentation to the hospital, patient was noted to be afebrile and hemodynamically stable. Labs including CBC and CMP was unremarkable. Patient underwent CT abdomen pelvis with IV contrast which showed findings of midline ventral hernia measuring 5 cm above the umbilicus with proximal dilated loops concerning for developing early or partial mechanical bowel obstruction. There was no evidence of strangulation noted on the CT scan. Throughout the hospitalization patient underwent KUB and was unremarkable. NG tube was discontinued patient was put on clear liquid diet followed by GI diet. Surgeon evaluated patient and cleared patient to be discharged home and to follow up within 2 to 3 weeks. Patient was also advised to follow up with PCP in 2 to 3 days. Patient denies any shortness of breath, chest pain, nausea, vomiting or any other discomfort at this moment. Procedure(s): REVIEW OF SYSTEMS CONSTITUTIONAL: Denies fevers, chills, or night sweats. No unintentional weight loss reported. NEUROLOGICAL: Denies headache, amaurosis fugax, motor weakness, sensory deficit, vertigo/spinning sensation, gait abnormalities, or tremors. ENT: No hearing loss, otalgia, otorrhea, rhinitis, rhinorrhea, hoarseness, or sore throat. CARDIOVASCULAR: Denies any exertional angina, dyspnea on exertion, orthopnea, paroxysmal nocturnal dyspnea, palpitations, life-threatening arrhythmias, claudication. PULMONARY: Denies any shortness of breath, cough, phlegm/sputum, hemoptysis, complaints of having left sided rib pain SLEEP: Denies morning headaches, daytime somnolence or napping. Denies difficulty falling asleep, staying asleep, waking from sleep. Denies knowledge of snoring. GASTROINTESTINAL: denies any nausea, severe abdominal pain GENITOURINARY: Denies frequency, urgency, nocturia, hematuria or incontinence (Storage/Irritative symptoms.) Low urinary stream, straining to void, urinary intermittency or hesitancy, splitting of the voiding stream, terminal dribbling. ENDOCRINOLOGIC: Denies polyuria, polydipsia, polyphagia or heat/cold intolerances. HEMATOLOGIC: Denies thrombophilia/previous clots, or coagulopathy/bleeding disorders. ONCOLOGIC: Denies personal history of malignancy. DERMATOLOGIC: Denies rashes or pruritus. PSYCHIATRIC: Denies any suicidal or homicidal ideation. Denies hallucinations. PHYSICAL EXAM: GENERAL APPEARANCE: The patient is awake, alert, and oriented, in no acute cardiopulmonary distress. NEUROLOGICAL: Cranial nerves II-XII grossly intact. Motor is 5/5 in bilateral upper and lower extremities proximal to distal. No sensory deficits. HEENT: Face is symmetric. Pupils are equal and reactive. Extraocular movements are intact. NECK: Supple. No JVD. No thyromegaly. No submental, submandibular, pre- /postauricular, occipital or supraclavicular lymphadenopathy. CHEST: Normal chest expansion. No Telemetry. LUNGS: Absence of any rales, rhonchi or any wheezing. CARDIOVASCULAR: Regular. S1 and S2 normal. No appreciable rubs, murmurs or gallops. ABDOMEN: Soft, bowel sounds are active, palpable abdominal ventral hernia noted with no erythema or swelling noted, pain to palpation noted, no rebound or g uarding : Deferred. No Arredondo. EXTREMITIES: Non-edematous and not cyanotic. No clubbing. Good capillary refill. SKIN: No skin breakdown. Assessment/Plan: ASSESSMENT: Developing acute mechanical bowel obstruction, POA Ventral abdominal wall hernia, POA Recent history of fall with nondisplaced 5th left rib fracture, POA Obesity, POA History of brain aneurysm status post aneurysmal clipping in 2020, POA History of prediabetes, POA Developing urinary tract infection, POA Time spent arranging discharge: 31-60 minutes ATTESTATION BY PHYSICIAN I have seen and examined the patient. I reviewed the documentation, medical decision making, and treatment plan as noted by the mid-level provider above. I agree with the findings and plan of care. MD MAT Argueta [facility]ZYNA [facility] Apr 22, 2024 11:46
--- NOTE | 2024-04-22 14:00 | NUR ---
DISCHARGE PT PIV DC'D PT VERBALIZED UNDERSTANDING OF DISCHARGE INSTRUCTIONS PT GATHERED AND TOOK ALL BELONGINGS PT HAD NO FURTHER QUESTIONS AT TIME OF DISCHARGE
[2024-04-22] MEDS ORDERED: PoTASSium chloRIDE 20MEQ ER 20 MEQ ERTAB PO ONE (21:00)
== END 2024-04-22 14:00 | disposition home or self-care (01) | DRG 389 ==
LOC: EDH 10:01 → EDHIP 13:11 → 3AH 21:11
PROVIDERS: ADMIT Internal Medicine; ATTEND Internal Medicine
PROC: 0D9670Z Drainage of Stomach with Drainage Device, Via Natural or Artificial Opening (ICD-10-PCS; principal; 2024-04-20)
DX: K56.609 Unspecified intestinal obstruction, unspecified as to partial versus complete obstruction (principal); N39.0 Urinary tract infection, site not specified; K43.9 Ventral hernia without obstruction or gangrene; E11.9 Type 2 diabetes mellitus without complications; E66.9 Obesity, unspecified; Z68.31 Body mass index [BMI] 31.0-31.9, adult
CPT/HCPCS: 36415; 71045; 71100; 74018; 74177; 80048; 80053; 80076; 81001; 83036; 83605; 83690; 83735; 84443; 84484; 85025; 85610; 85730; 86140; 86850; 86900; 86901; 87086; 93005; 96374; 96375; 96376; 99285; G0378; J0696; J1650; J2270; J2405; J2470; J7030; Q9967